=== PATIENT | female | born 1975 | race Asian ===

== ENCOUNTER 2020-02-29 17:34 | Emergency (ER) | payer BC, MEDICAID ==
[~2020-02-29] VITALS: Ht 162.6 cm; Wt 66.4 kg
--- NOTE | 2020-02-29 18:04 | NUR ---
PT HAS CO MIGRAINE, UNRELIEVED W HOME INJECTIONS SUMITRIPTAN. SYMPTOMS ONGOING SINCE YESTERDAY. STATES HER FACE GOES NUMB. NO NEURO SYMPTOMS. MD AT BEDSIDE.
[2020-02-29] MEDS ORDERED: METOCLOPRAMIDE 5 MG/ML, 2ML ONE (18:09)
[2020-02-29] MEDS ORDERED: DIPHENHYDRAMINE 50 MG/ML, 1ML ONE (18:09)
[2020-02-29] MEDS ORDERED: KETOROLAC 30 MG/1 ML ONE (18:09)
--- NOTE | 2020-02-29 18:21 | NUR ---
MEDICATED PER ORDERS
[2020-02-29] MEDS ORDERED: KETOROLAC 30 MG/1 ML IVPush ONE (18:30)
[2020-02-29] MEDS ORDERED: DIPHENHYDRAMINE 50 MG/ML, 1ML IVPush ONE (18:30)
[2020-02-29] MEDS ORDERED: SODIUM CHLORIDE FLUSH 10ML SYR IVF ONE (18:30)
[2020-02-29] MEDS ORDERED: METOCLOPRAMIDE 5 MG/ML, 2ML IVPush ONE (18:30)
--- NOTE | 2020-02-29 18:50 | NUR ---
REPORT RECEVIED FROM ROLANDA BRICE
[2020-02-29 18:59] VITALS: BP 140/90
== END 2020-02-29 19:31 | disposition home or self-care (01) ==
LOC: ED 19:00
DX: G43.101 Migraine with aura, not intractable, with status migrainosus (principal); Z88.0 Allergy status to penicillin; Z88.2 Allergy status to sulfonamides
CPT/HCPCS: 96374; 96375; 99284; J1200; J1885; J2765